=== PATIENT | female | born 1980 | race Caucasian/White ===

== ENCOUNTER 2019-12-23 22:07 | Emergency (ER) | payer MEDICAID ==
[~2019-12-23] VITALS: Ht 144.8 cm; Wt 78.0 kg
[2019-12-23 22:11] VITALS: Ht 144.8 cm; Wt 78.0 kg
[2019-12-24 01:14] VITALS: BP 126/67
== END 2019-12-24 01:14 | disposition home or self-care (01) ==
LOC: ED 22:07
DX: F41.9 Anxiety disorder, unspecified (principal)